=== PATIENT | female | born 1960 | race Caucasian/White ===

== ENCOUNTER → 2018-12-06 15:29 | Outpatient (CLI) | payer BC, SELFPAY ==
--- NOTE | 2018-12-06 15:35 | US_ITS ---
STUDY: RENAL ULTRASOUND - COMPLETE REASON FOR EXAM: Female, 58 years old. UTIs and back pain TECHNIQUE: Ultrasound evaluation of the kidneys was performed with real-time and static quan-scale imaging. COMPARISON: None. FINDINGS: The study is limited secondary to excessive bowel gas. RIGHT KIDNEY: Normal location of the right kidney, which is normal in size. The right kidney measures 11.8 x 4.8 x 3.9 cm. There is a normal cortex of the right kidney. The renal cortex measures 1.5 cm. There is no right renal mass or cyst. There are no right renal calculi. There is no right hydronephrosis. DISTAL RIGHT URETER: There is non-visualization of the distal right ureter. There is no demonstrated right ureterovesical junction calculus. There is no demonstrated right ureteral jet. LEFT KIDNEY: Normal location of the left kidney, which is normal in size. The left kidney measures 10.6 x 4.6 x 5.5 cm. There is a normal cortex of the left kidney. The renal cortex measures 1.4 cm. There is no left renal mass or cyst. There are no left renal calculi. There is no left hydronephrosis. DISTAL LEFT URETER: There is non-visualization of the distal left ureter. There is no demonstrated left ureterovesical junction calculus. There is no demonstrated left ureteral jet. BLADDER: The distended urinary bladder has a volume of 42 ml. There is a normal wall thickness of the distended urinary bladder. Bladder wall thickness is 2 mm. There is no demonstrated mass within the urinary bladder. There are no demonstrated bladder calculi. US/Kidney and Bladder IMPRESSION: Normal ultrasound of the kidneys and urinary bladder. Electronically Signed: Daniel Hadley MD at 16:46 EDT , Service support ,
== END ==
PROVIDERS: Family Provider Internal Medicine; PCP Internal Medicine; Referring Provider Urology; Visit Provider Urology
DX: N39.0 Urinary tract infection, site not specified (principal)
CPT/HCPCS: 76770

== ENCOUNTER → 2020-03-23 08:43 | Outpatient (CLI) ==
[2020-03-26 20:08] LABS: Almond <0.10 kU/L (Class 0); Barley, Whole Grain <0.10 kU/L (Class 0); Beef <0.10 kU/L (Class 0); Carrot <0.10 kU/L (Class 0); Casein <0.10 kU/L (Class 0); Cashew <0.10 kU/L (Class 0); Chicken <0.10 kU/L (Class 0); Chocolate <0.10 kU/L (Class 0); Clam <0.10 kU/L (Class 0); Codfish <0.10 kU/L (Class 0); Corn <0.10 kU/L (Class 0); Crab <0.10 kU/L (Class 0); Egg, White <0.10 kU/L (Class 0); Egg, Whole <0.10 kU/L (Class 0); Egg, Yolk <0.10 kU/L (Class 0); Garlic <0.10 kU/L (Class 0); Gluten <0.10 kU/L (Class 0); Hazelnut/Filbert <0.10 kU/L (Class 0); Lobster <0.10 kU/L (Class 0); Milk (Cow) <0.10 kU/L (Class 0); Oat <0.10 kU/L (Class 0); Onion <0.10 kU/L (Class 0); Orange <0.10 kU/L (Class 0); Pea <0.10 kU/L (Class 0); Pecan <0.10 kU/L (Class 0); Pork <0.10 kU/L (Class 0); Potato, White <0.10 kU/L (Class 0); Rice <0.10 kU/L (Class 0); Rye <0.10 kU/L (Class 0); Salmon <0.10 kU/L (Class 0); Shrimp <0.10 kU/L (Class 0); Soybean <0.10 kU/L (Class 0); Strawberry <0.10 kU/L (Class 0); Tomato <0.10 kU/L (Class 0); Tuna <0.10 kU/L (Class 0); Walnut, (Food) <0.10 kU/L (Class 0); Wheat <0.10 kU/L (Class 0); Yeast <0.10 kU/L (Class 0)
[2020-03-26 20:24] LABS: Apple <0.10 kU/L (Class 0); Peanut <0.10 kU/L (Class 0)
[2020-03-28 04:07] LABS: Banana <0.10 kU/L (Class 0); Celery <0.10 kU/L (Class 0); Cheddar Cheese <0.10 kU/L (Class 0); Lettuce <0.10 kU/L (Class 0); Peach <0.10 kU/L (Class 0)
[2020-03-28 09:01] LABS: Lactalbumin, Alpha <0.10 kU/L (Class 0); Turkey <0.10 kU/L (Class 0)
== END ==
PROVIDERS: Otolaryngology Otolaryngology/Facial Plastic Surgery
DX: T78.40XA Allergy, unspecified, initial encounter (principal)
CPT/HCPCS: 36415; 86003

== ENCOUNTER 2022-05-26 08:12 | Inpatient (IN) | payer OTHER, SELFPAY ==
[2022-05-26] VITALS (10 sets, daily range): BP systolic 114–155; BP diastolic 54–85; PULSE 78–113; RESP 15–20; TEMP 36.3–37.7; O2SAT 93–99; BMI 44.9; BMI 47.5
--- NOTE | 2022-05-26 08:36 | EKG12_ITS ---
Test Reason : SOB Blood Pressure : / mmHG Vent. Rate : 106 BPM Atrial Rate : 106 BPM P-R Int : 112 ms QRS Dur : 076 ms QT Int : 498 ms P-R-T Axes : 043 056 057 degrees QTc Int : 661 ms Sinus tachycardia Nonspecific ST and T wave abnormality Prolonged QT Abnormal ECG Confirmed by SHEMAR PANDYA, JOSETTE ([id number]), non linear editor EVETTE CONROY ([id number]) on 05/27/2022 10:48:23 AM Referred By: Confirmed By:JOSETTE STATON MD
--- NOTE | 2022-05-26 08:37 | ED.VIS.DYS ---
HPI History of Present Illness Chief Complaint: Shortness of Breath Narrative Narrative: Patient presents with shortness of breath cough and congestion for past 2 days. Family members have been diagnosed with influenza. She has some myalgias. She has no chest pain or pleuritic component. She has no nausea or vomiting. No diarrhea. No abdominal pain or urinary symptoms. She has had a low-grade fever. [facility] Medical History (Updated 05/26/22 @ 11:[address] Huang Castro MD) Acid reflux disease Allergy Home Medications cetirizine 10 mg capsule (Zyrtec) 10 mg PO DAILY 05/26/22 [History Last Taken Unknown] omeprazole 20 mg capsule,delayed release 20 mg PO DAILY 05/26/22 [History Last Taken Unknown] Allergy/AdvReac Type Severity Reaction Status Date / Time Penicillins Allergy Hives Verified 05/26/22 08:16 Sulfa (Sulfonamide Allergy Hives Verified 05/26/22 08:16 Antibiotics) Social History Smoking Status: Current every day smoker tobacco type: cigarettes ROS ROS ED ROS Narrative Past medical history: Reviewed Medications: Reviewed Social history: Noncontributory Review of systems: All systems negative except as indicated General: No fever Eyes: No visual changes ENT: Some upper airway congestion. Neck: No neck pain Cardiovascular: No chest pain Respiratory: Nonproductive cough and some dyspnea Gastrointestinal: No abdominal pain, nausea vomiting or diarrhea Genitourinary: No dysuria Musculoskeletal: Some myalgias Skin: No rash Neurological: No memory loss, confusion or any focal weakness Psych: No recent behavioral changes Hematologic: No easy bleeding or easy bruising EXAM Physical Exam Narrative Exam Narrative: Physical exam General: As she is sitting she appears relatively comfortable. She does not appear ill Head: Normocephalic, Atraumatic Eyes: Conjunctiva not pale ENT: Moist mucous membranes, some congestion Neck: Supple, Nontender, No lymphadenopathy Cardiovascular: Regular rate, Regular rhythm Respiratory: No distress, CTA bilaterally. I do not appreciate any rhonchi or wheezing. She is speaking in full sentences. Abdomen: Soft, Nontender, Nondistended Back: Nontender, Normal Inspection. Negative for: CVA tenderness Extremities: Nontender, No edema Skin: Normal color, No rash Neurological: Alert, Normal Strength, Normal Sensation Psychological: Normal affect Const Vital Signs: 05/26/22 08:13 05/26/22 10:15 05/26/22 11:09 Temperature 98 F Temperature Source Temporal Pulse Rate 113 H Respiratory Rate 18 Respiratory Effort Normal Non-Labored Respiratory Depth Normal Respiratory Pattern Normal Blood Pressure 155/85 H Blood Pressure Mean 108 Pulse Ox 93 99 Oxygen Delivery Method Room Air Room Air Nasal Cannula Oxygen Flow Rate (L/min) 2 MDM MDM Lab Data Labs: Laboratory Results - last 24 hr 05/26/22 05/26/22 05/26/22 09:10 09:10 09:10 WBC 6.9 RBC 4.36 Hgb 12.9 Hct 41.7 MCV 95.6 MCH 29.6 MCHC 30.9 L RDW Std Deviation 48.2 H RDW Coeff of Diann 13.7 Plt Count 217 MPV 9.3 Immature Gran % (Auto) 0.900 Neut % (Auto) 87.7 H Lymph % (Auto) 3.5 L [place] % (Auto) 7.8 Eos % (Auto) 0.0 Baso % (Auto) 0.1 Absolute Neuts (auto) 6.1 Absolute Lymphs (auto) 0.24 L Nucleated RBC % 0.3 D-Dimer Quant (PE/DVT) Sodium 140 Potassium 4.5 Chloride 109 H Carbon Dioxide 27.0 Anion Gap 4 L BUN 14 Creatinine 0.74 Estim Creat Clear Calc 55.17 Est GFR (MDRD) Af Amer 101 Est GFR (MDRD) Non-Af 83 BUN/Creatinine Ratio 18.8 Glucose 114 H Calcium 8.7 Total Bilirubin 0.30 AST 32 ALT 28 Alkaline Phosphatase 89 Troponin I High Sens 9 B-Natriuretic Peptide 35.9 Total Protein 6.8 Albumin 3.3 Globulin 3.5 Albumin/Globulin Ratio 0.9 05/26/22 09:10 WBC RBC Hgb Hct MCV MCH MCHC RDW Std Deviation RDW Coeff of Diann Plt Count MPV Immature Gran % (Auto) Neut % (Auto) Lymph % (Auto) [place] % (Auto) Eos % (Auto) Baso % (Auto) Absolute Neuts (auto) Absolute Lymphs (auto) Nucleated RBC % D-Dimer Quant (PE/DVT) 1.08 H* Sodium Potassium Chloride Carbon Dioxide Anion Gap BUN Creatinine Estim Creat Clear Calc Est GFR (MDRD) Af Amer Est GFR (MDRD) Non-Af BUN/Creatinine Ratio Glucose Calcium Total Bilirubin AST ALT Alkaline Phosphatase Troponin I High Sens B-Natriuretic Peptide Total Protein Albumin Globulin Albumin/Globulin Ratio Radiography Diagnostic Testing: Clinical Impression(s) from Imaging Studies Chest X-Ray 05/26/22 09:20 IMPRESSION: No acute abnormality is seen. Electronically Signed: Johnathan Malone MD at 10:03 EST , Chest CTA 05/26/22 09:36 IMPRESSION: Normal CTA chest examination, without a demonstrated pulmonary embolism or arterial dissection. Electronically Signed: Johnathan Malone MD at 11:00 EST , Chest x-ray read by me as normal EKG Initial EKG: Comments: Sinus rhythm with a rate of 106. Normal ND. QTC is 661. Nonspecific ST changes throughout the EKG. Treatment and Re-Evaluation Narrative: Patient has dyspnea, she was found to be hypoxic at 88% here as well as in the outpatient [facility]. She tested negative for COVID and influenza I do believe this is likely a false negative and she likely has influenza based on her symptoms and the fact that it is peak season. I will check a respiratory panel on her in the meantime she is now oxygen dependent therefore I will admit her. A PE study was negative for thromboembolic event and pneumonia therefore I do not think she needs antibiotics. She is not wheezing therefore I do not believe she will benefit from nebulizers. Discharge Plan Triage Chief Complaint: Shortness of Breath ED Provider: Huang Castro Dx/Rx/DC Orders Clinical Impression: Hypoxia, Upper respiratory infection, Weakness, Acute dyspnea Prescriptions: No Action omeprazole 20 mg Capsule,Delayed Release(Dr/Ec) 20 mg PO DAILY Zyrtec 10 mg Capsule 10 mg PO DAILY Primary Care Provider: Meenakshi Tan Referrals: Meenakshi Tan MD [Primary Care Provider] - Disposition Disposition: Acute Care Hospital [facility]
[2022-05-26 09:19] LABS: Absolute Lymphocyte Count 0.24 X10^3/uL (0.83-4.51); Absolute Neutrophil Count 6.1 X10^3/uL (2.0-7.7); Basophil# 0.01 X10^3/uL; Basophil% 0.1 % (0-1); Hematocrit 41.7 % (37-47); Hemoglobin 12.9 g/dL (12.0-15.0); Lymphocyte # 0.24 X10^3/ul (0.83-4.51); Lymphocyte % 3.5 % (19-41); Mean Corp Hgb Conc 30.9 g/dL (32-36); Mean Corpuscular Hgb 29.6 pg (27.0-32.0); Mean Corpuscular Volume 95.6 fL (81-99); Mean Platelet Vol. 9.3 fl (6.2-12.0); Monocyte# 0.54 X10^3/uL; Monocyte% 7.8 % (0-10); NRBC Flagged by Analyzer 0.3 % (0-5); Neutrophil # 6.07 X10^3/uL (2.7-7.7); Neutrophil % 87.7 % (47-70); POSITIVE DIFFERENTIAL YES; Platelet Count 217 K/mm3 (150-450); RBC Distribution Width CV 13.7 % (11.6-14.6); RBC Distribution Width SD 48.2 fl (35.1-43.9); Red Blood Count 4.36 M/mm3 (4.2-5.4); White Blood Count 6.9 K/mm3 (4.4-11.0)
--- NOTE | 2022-05-26 09:20 | RAD_ITS ---
STUDY: X-RAY CHEST REASON FOR EXAM: Female, 62 years old. Sob TECHNIQUE: PA and lateral views of the chest. COMPARISON: Comparison is made with prior study dated 02/26/2013. FINDINGS: Mild elevation of the left hemidiaphragm. Scattered calcified granulomas. The lungs are clear. There is no demonstrated pleural abnormality. Normal size heart. Normal mediastinum and [place]. Normal visualized pulmonary arteries. Normal visualized aortic arch and descending thoracic aorta. Normal visualized thoracic spine. Normal visualized ribs, clavicles, and shoulders. There is no demonstrated abnormality of the visualized soft tissue structures of the upper abdomen. RAD/Chest PA and Lateral IMPRESSION: No acute abnormality is seen. Electronically Signed: Johnathan Malone MD at 10:03 [facility] ,
[2022-05-26 09:23] LABS: Differential Indicated SCAN CRITERIA MET
[2022-05-26 09:35] LABS: D-Dimer Quantitative (DVT/PE) 1.08 FEU/ug/m (0.27-0.49)
--- NOTE | 2022-05-26 09:36 | CT_ITS ---
STUDY: CTA CHEST REASON FOR EXAM: Female, 62 years old. Shortness of breath. RADIATION DOSAGE (If Supplied By Facility): CTDIvol = ( 17.32 ) mGy, DLP = ( 669.07 ) mGycm TECHNIQUE: The examination was performed with the intravenous administration of IV 100mL Isovue-370. Post-processing of the angiographic images was performed, with multiplanar reformation and 3D reconstruction. Individualized dose optimization techniques were used for this CT. COMPARISON: None. FINDINGS: Normal enhancement of the main pulmonary artery and right and left pulmonary arteries. Normal enhancement of the bilateral peripheral pulmonary arteries. There is no demonstrated pulmonary embolism. Normal thoracic aorta and visualized great vessels. There is no demonstrated aortic dissection. Normal heart and pericardium. Calcified subcarinal lymph nodes. Calcified right hilar lymph nodes. Normal visualized trachea and bronchi. The lungs are well expanded. Normal pulmonary parenchyma. Normal pleura. Normal chest wall structures. Normal osseous structures. Small hiatal hernia. CT/CTA Chest W/WO Contrast IMPRESSION: Normal CTA chest examination, without a demonstrated pulmonary embolism or arterial dissection. Electronically Signed: Johnathan Malone MD at 11:00 EST ,
[2022-05-26 09:38] LABS: BNP,B-Type NATRIURETIC PEPTIDE 35.9 pg/mL (0-100)
[2022-05-26 09:41] LABS: ALB/GLOB Ratio 0.9 RATIO (0.9-2.4); AST(SGOT) 32 U/L (15-37); Alanine Aminotransfer ALT/SGPT 28 U/L (13-56); Albumin, Serum 3.3 g/dL (3.2-5.0); Alkaline Phosphatase 89 U/L (45-117); Anion Gap 4 (5-15); BUN 14 mg/dL (7-18); BUN/Creat Ratio 18.8 RATIO (10-20); Calcium,Total 8.7 mg/dL (8.5-10.1); Chloride 109 mmol/L (98-107); Creatinine, Serum 0.74 mg/dL (0.55-1.02); EST Glomerular Filtration Rate 83 mL/min (>60); Est Glom Filt Rate - Afr Amer 101 mL/min (>60); Estimated Creatinine Clearance 55.17 ml/min; Globulin 3.5 g/dL (2.2-4.2); Glucose 114 mg/dL (74-106); Potassium 4.5 mmol/L (3.5-5.1); Protein, Total 6.8 g/dL (6.4-8.2); Sodium Level 140 mmol/L (136-145); Troponin-I HS 9 pg/mL (3.0-54.0)
--- NOTE | 2022-05-26 11:51 | NURSING ---
DR BAIRON DONG
--- NOTE | 2022-05-26 11:58 | PCM.HP.STD ---
HPI - General General Date of Admission: 05/26/22 Date of Service: 05/26/22 Chief Complaint: Shortness of breath/hypoxia HPI Narrative SAVI GIBSON, is a 62 F who presented to the emergency department [facility] on 05/26/2022 with a chief complaint of cough and shortness of breath. Patient states it started approximately 24 hours prior to presentation. She has had associated headache, neck pain, nasal congestion, cough that is only intermittently productive of sputum but typically dry, generalized weakness and myalgias. She is had no nausea vomiting or diarrhea. She reports intermittent chills but no documented fever. She has no sick contacts. She states her T-max at home was 99.7. She went to outpatient urgent care and oxygen saturations were 87% on room air so they referred her to the emergency department. Per discussion with the ER physician her oxygen was 87 to 88% on room air there however it is documented to be 93%. Temperature was 98, heart rate 113, respiratory rate 18, blood pressure 155/85 and all pulse ox was 93% on room air and improved to 99% on 2 L. Her CBC is overall unremarkable however it does show a left shift with an 87.7% neutrophilia. Her chemistry panel is unremarkable. A D-dimer was obtained given her shortness of breath and was found to be 1.08 therefore a CTA of her chest was performed and showed a normal CTA without any pulmonary embolus or arterial dissection and there were no abnormalities in the lung parenchyma upon my review. On exam she does have intermittent rhonchi that clear with coughing and scattered end expiratory wheezes. A COVID-19 and flu panel are negative, respiratory viral panel were negative as well. [facility] Medical History Acid reflux disease Allergy Arthritis Kidney stones Home Medications Lactobacillus acidophilus 10 billion cell capsule (Probiotic) 10,000 mmu cells PO DAILY GUT HEALTH 05/26/22 [History Last Taken 05/25/22] acetaminophen 500 mg tablet 1,000 mg PO QHS PAIN 05/26/22 [History Last Taken 05/25/22] cetirizine 10 mg capsule (Zyrtec) 10 mg PO DAILY ALLERGIES 05/26/22 [History Last Taken 05/26/22] cholecalciferol (vitamin D3) 125 mcg (5,000 unit) capsule 125 mcg PO DAILY SUPPLEMENT 05/26/22 [History Last Taken 05/26/22] guaifenesin 600 mg tablet, extended release 12 hr (Mucinex) 600 mg PO DAILY CONGESTION 05/26/22 [History Last Taken 05/25/22] ibuprofen 200 mg tablet 800 mg PO QHS PAIN 05/26/22 [History Last Taken 05/25/22] loperamide 2 mg capsule 4 mg PO DAILY DIARRHEA 05/26/22 [History Last Taken 05/26/22] magnesium citrate 100 mg tablet 100 mg PO DAILY SUPPLEMENT 05/26/22 [History Last Taken 05/25/22] omeprazole 20 mg capsule,delayed release 20 mg PO DAILY GERD 05/26/22 [History Last Taken 05/26/22] vitamin A-vitamin C-vit E-min tablet 1 tab PO DAILY SUPPLEMENT 05/26/22 [History Last Taken 05/25/22] Allergy/AdvReac Type Severity Reaction Status Date / Time Penicillins Allergy Hives Verified 05/26/22 08:16 Sulfa (Sulfonamide Allergy Hives Verified 05/26/22 08:16 Antibiotics) no significant family history no surgical history Social History (Updated 05/26/22 @ 17:[address] Leila Miller, DO) Smoking Status: Current every day smoker tobacco type: cigarettes alcohol intake: current alcohol intake frequency: holidays/special occasions only substance use type: does not use ROS Constitutional Constitutional: Reports chills, malaise and weakness; Denies anorexia, change in weight, fatigue, fever(s), night sweats or other Eyes Eyes: Denies blurry vision, change in eye color, change in vision, discharge from eye(s), double vision, erythema, eye pain, loss of vision or other ENT HEENT: Reports headache(s) and nasal congestion; Denies abnormal hearing, dysphagia, ear pain, epistaxis, hearing loss, nasal discharge, post nasal drip, sinus pressure, sore throat or other Cardiovascular Cardiovascular: Reports dyspnea on exertion; Denies chest pain, claudication, edema, lightheadedness, orthopnea, palpitations, paroxysmal nocturnal dyspnea, rapid heart rate, syncope or other Respiratory/Chest Respiratory/Chest: Reports cough, dyspnea, shortness of breath at rest, shortness of breath with exertion and wheezing; Denies excessive phlegm production, hemoptysis, productive cough or other Gastrointestinal Gastrointestinal: Denies abdominal pain, coffee ground emesis, constipation, diarrhea, dyspepsia, hematemesis, hematochezia, loose stools, melena, nausea, vomiting or other Genitourinary Genitourinary: Denies burning urination, difficulty urinating, dysuria, hematuria, nocturia, urinary frequency, urinary hesitancy, urinary incontinence, urinary urgency or other Musculoskeletal Musculoskeletal: Reports neck pain; Denies arthralgias, back pain, joint pain, joint stiffness, joint swelling, myalgias or other Neurologic Neurologic: Denies abnormal gait, abnormal speech, confusion, disequilibrium, dizziness, focal weakness, headache(s), numbness, paresthesias, seizure-like activity, seizures, syncope, tingling, tremor(s) or other Psychiatric Psychiatric: Denies anxiety, depression, homicidal ideation, suicidal ideation or other Endocrine Endocrinology: Denies change in body appearance, cold intolerance, excessive sweating, heat intolerance, polydipsia, polyuria or other Hematologic/Lymphatic Hematologic/Lymphatic: Denies anemia, easy bleeding, easy bruising, lymphadenopathy or other Allergic/Immunologic Allergic/Immunologic: Denies rhinitis, hives, eczemia, asthma or other Vital Signs Vital Signs Vital Signs: 05/26/22 08:13 05/26/22 10:15 05/26/22 11:09 Temperature 98 F Temperature Source Temporal Pulse Rate 113 H Respiratory Rate 18 Respiratory Effort Normal Non-Labored Respiratory Depth Normal Respiratory Pattern Normal Blood Pressure 155/85 H Blood Pressure Mean 108 Pulse Ox 93 99 Oxygen Delivery Method Room Air Room Air Nasal Cannula Oxygen Flow Rate (L/min) 2 Weight Weight: 104.326 kg Body Mass Index (BMI) 44.9 Physical Exam Const alert, oriented x3, no apparent distress, healthy appearing and well nourished Constitutional Narrative: Morbidly obese white female lying in bed on cell phone texting, appears comfortable nontoxic, nursing at bedside General Appearance: cooperative HEENT normocephalic, head/scalp atraumatic, hearing grossly normal bilaterally and moist oral mucous membranes HEENT Narrative: Mallampati 4, dentition is good, no thrush Neck no lymphadenopathy and supple Neck Narrative: Trachea midline, neck is short and thick Resp normal respiratory effort, no retractions, no use of accessory muscles and No clear to auscultation bilaterally Resp Narrative: Scattered end expiratory wheezes with few scattered rhonchi that clear with cough Auscultation: rhonchi and wheezes; Negative for crackles Cardio regular rate, regular rhythm, S1 normal heart sound, S2 normal heart sound, no murmurs, no rub, no gallops and no clicks GI normal to inspection, nondistended, normoactive bowel sounds, soft to palpation and non-tender Extremity no clubbing, cyanosis or edema Extremity Narrative: Plus pedal pulses Neuro oriented x3, CN's II-XII intact bilaterally, moves all extremities and no focal motor deficits Speech: speech normal Psych affect normal Psych Narrative: Pleasant and appropriately interactive Results Lab / Micro Data Attestation: I reviewed the patient's lab results. Result Diagrams: 05/26/22 09:10 05/26/22 09:10 Labs: Laboratory Results - last 24 hr 05/26/22 09:10: WBC 6.9, RBC 4.36, Hgb 12.9, Hct 41.7, MCV 95.6, MCH 29.6, MCHC 30.9 L, RDW Std Deviation 48.2 H, RDW Coeff of Diann 13.7, Plt Count 217, MPV 9.3, Immature Gran % (Auto) 0.900, Neut % (Auto) 87.7 H, Lymph % (Auto) 3.5 L, [place] % (Auto) 7.8, Eos % (Auto) 0.0, Baso % (Auto) 0.1, Absolute Neuts (auto) 6.1, Absolute Lymphs (auto) 0.24 L, Nucleated RBC % 0.3 05/26/22 09:10: Sodium 140, Potassium 4.5, Chloride 109 H, Carbon Dioxide 27.0, Anion Gap 4 L, BUN 14, Creatinine 0.74, Estim Creat Clear Calc 55.17, Est GFR (MDRD) Af Amer 101, Est GFR (MDRD) Non-Af 83, BUN/Creatinine Ratio 18.8, Glucose 114 H, Calcium 8.7, Total Bilirubin 0.30, AST 32, ALT 28, Alkaline Phosphatase 89, Troponin I High Sens 9, Total Protein 6.8, Albumin 3.3, Globulin 3.5, Albumin/Globulin Ratio 0.9 05/26/22 09:10: B-Natriuretic Peptide 35.9 05/26/22 09:10: D-Dimer Quant (PE/DVT) 1.08 H* Micro: Microbiology 05/26/22 09:10 Nasal Secretion SARS-CoV-2 & FLU Antigen (Rapid) - Final Radiology Impression Chest X-Ray 05/26/22 09:20 IMPRESSION: No acute abnormality is seen. Electronically Signed: Johnathan Malone MD at 10:03 EST , Chest CTA 05/26/22 09:36 IMPRESSION: Normal CTA chest examination, without a demonstrated pulmonary embolism or arterial dissection. Electronically Signed: Johnathan Malone MD at 11:00 EST , Assessment & Plan Assessment/Plan (1) Hypoxia: (2) Upper respiratory infection: (3) Weakness: (4) Acute dyspnea: PLAN: Plan Hypoxia with upper respiratory tract infection -COVID and flu are negative -Respiratory viral panel is negative -Check strep pneumo and Legionella antigens -Patient is not having any significant sputum production -Antitussives -Mucolytics -Steroids 40 mg prednisone daily -Aggressive pulmonary toilet -I-S/Pep therapy -Currently on 2 L nasal cannula not O2 dependent at baseline -Wean oxygen as able -Need ambulatory pulse ox prior to discharge Weakness -Secondary to the above -Encourage mobility Elevated D-dimer -CTA is negative for PE -No lower extremity edema -Likely related to acute infection GERD Continue home PT PI seasonal allergies -Continue home Zyrtec Chronic diarrhea -Continue home Imodium Vitamin D deficiency -Continue home vitamin D supplementation Morbid obesity -BMI 47.6 -Recommend weight loss -Complicates treatment, prognosis, outcomes -Would recommend outpatient polysomnography after discharge as patient is high risk for obstructive sleep apnea Tobacco abuse -Patient reports she smokes anywhere from 1/2 to 1 pack of cigarettes daily -Has been doing so forever -Denies need for nicotine replacement therapy -Recommend cessation DVT prophylaxis -Lovenox twice daily CODE STATUS -Full code Charges/Coding Visit Charges Inpatient E&M: 08072 Init Hosp L2
--- NOTE | 2022-05-26 12:57 | NURSING ---
MED SURG BAIRON HYPOXIA
--- NOTE | 2022-05-26 14:08 | NURSING ---
MS ED 3
[2022-05-26] MEDS: predniSONE 20 MG Tablet 40 MG PO (16:24)
[2022-05-26] MEDS: Ipratropium/Albuterol Sulfate 3 ML AMPUL.NEB INHALATION (16:52)
--- NOTE | 2022-05-26 17:15 | NURSING ---
report called to [facility]by with no questions. pt to [facility] via bed with all belongings.
[2022-05-26] MEDS: Benzonatate 100 MG Capsule PO (18:10)
[2022-05-26] MEDS: Ibuprofen 400 MG Tablet 800 MG PO (20:22)
[2022-05-26] MEDS: Enoxaparin 40 MG/0.4 ML Syringe SC (20:22)
[2022-05-26] MEDS: guaiFENesin 600 MG Tablet PO (20:23)
[2022-05-26] MEDS: Acetaminophen 500 MG Tablet 1000 MG PO (20:23)
[2022-05-27] VITALS (10 sets, daily range): BP systolic 106–125; BP diastolic 54–65; PULSE 84–94; RESP 15–20; TEMP 36.4–37.1; O2SAT 85–97
[2022-05-27] MEDS: Albuterol 2.5 MG/3 ML VIAL.NEB. INHALATION (00:24)
[2022-05-27 05:22] LABS: Absolute Neutrophil Count 4.9 X10^3/uL (2.0-7.7); Basophil# 0.01 X10^3/uL; Basophil% 0.2 % (0-1); Hematocrit 40.8 % (37-47); Hemoglobin 12.3 g/dL (12.0-15.0); Mean Corp Hgb Conc 30.1 g/dL (32-36); Mean Corpuscular Hgb 29.4 pg (27.0-32.0); Mean Corpuscular Volume 97.4 fL (81-99); Mean Platelet Vol. 9.6 fl (6.2-12.0); Monocyte% 8.3 % (0-10); NRBC Flagged by Analyzer 0.5 % (0-5); Neutrophil # 4.86 X10^3/uL (2.7-7.7); Neutrophil % 81.2 % (47-70); POSITIVE DIFFERENTIAL YES; Platelet Count 196 K/mm3 (150-450); RBC Distribution Width SD 50.4 fl (35.1-43.9); Red Blood Count 4.19 M/mm3 (4.2-5.4)
[2022-05-27 05:26] LABS: Differential Indicated SCAN CRITERIA MET
[2022-05-27] MEDS: Ibuprofen 400 MG Tablet PO (05:48)
[2022-05-27 05:57] LABS: Anion Gap 4 (5-15); BUN 13 mg/dL (7-18); BUN/Creat Ratio 21.7 RATIO (10-20); Calcium,Total 8.4 mg/dL (8.5-10.1); Chloride 106 mmol/L (98-107); EST Glomerular Filtration Rate 107 mL/min (>60); Est Glom Filt Rate - Afr Amer 130 mL/min (>60); Estimated Creatinine Clearance 68.04 ml/min; Glucose 99 mg/dL (74-106); Magnesium 2.2 mg/dL (1.6-2.6); Potassium 3.7 mmol/L (3.5-5.1); Sodium Level 139 mmol/L (136-145)
[2022-05-27 06:06] LABS: Phosphorus 3.8 mg/dL (2.5-4.9)
[2022-05-27 06:13] LABS: Differential Comment SCANNED
[2022-05-27] MEDS: Ipratropium/Albuterol Sulfate 3 ML AMPUL.NEB INHALATION ×2 (07:02→12:58)
--- NOTE | 2022-05-27 07:40 | NURSING ---
Patient in COVID isolation room. Test yesterday came back yesterday as negative for both COVID and FLU A/B. Messaged Dr. Dixon to verify if patient can come out of precautions. Dr. Dixon replied sure.
[2022-05-27] MEDS: Loratadine 10 MG Tablet PO (08:58)
[2022-05-27] MEDS: predniSONE 20 MG Tablet 40 MG PO (08:58)
[2022-05-27] MEDS: Enoxaparin 40 MG/0.4 ML Syringe SC (08:59)
[2022-05-27] MEDS: guaiFENesin 600 MG Tablet PO (08:59)
[2022-05-27] MEDS: Magnesium Chloride 64 MG Delay Rel.Tablet 128 MG PO (08:59)
[2022-05-27] MEDS: Cholecalciferol (Vit D3) 125 MCG CAPSULE (5,000 UNITS) PO (09:00)
[2022-05-27] MEDS: Loperamide 2 MG Capsule 4 MG PO (09:01)
[2022-05-27] MEDS: Multivitamin (Healthy Eyes) Capsule 1 CAP PO (09:01)
[2022-05-27] MEDS: Pantoprazole Sodium 20 MG Tablet PO (09:01)
--- NOTE | 2022-05-27 10:45 | CASEMGMT ---
RN RAMOS Face to Face with patient for initial transition planning/care coordination assessment. RN CM introduced self and role at [facility] [place]. Patient lying in bed, alert and oriented, daughter at bedside. Patient willing to participate in assessment and is able to answer all questions appropriately. Care providers, pharmacy, and demographics verified. Patient wishes to discharge home, denies need for home health at this time. Patient states she has no further needs or concerns at this time. CM to follow for discharge planning needs that may arise. PCP: Britney Specialists: none Preferred Pharmacy: [facility] at discharge Insurance: [employer] Prescription Benefit: yes Living Will/HPOA: yes, daughter Jessica Deal LNOK: daughter Living Arrangements: Patient lives with daughter in a 2 story home with finished basement where patient stays. Patient states she is independent at home and able to ambulate stairs. Transportation: self, daughter DME/HHC: Patient states she has shower chair, raised toilet, cane, walker, and grab bars at home. Patient is currently on oxygen, will monitor for home oxgyen. Reviewed DME agencies with patient and prefers [employer]. Disposition Plan: Patient to discharge home with family support and follow-up plans in place. Kinga WYMAN, RN, CM
--- NOTE | 2022-05-27 12:34 | DCINST_ITS ---
Discharge Instructions Diet Discharge Diet: No restrictions Activity Discharge Activity: Return to Normal Activity Dressing / Incision Call your doctor if you observe: Fever of 101 or Higher, Shortness of breath, Dizziness, Fainting spells, Swelling in the ankles, Chest pain and Increased palpitations (irregular heartbeat) Follow Up Care Test Results: Test results from this visit will be discussed in further detail at your follow- up appointment, if applicable. Discharge Plan Admission Admit Date/Time: 05/26/22 11:54 Attending Provider: Mark Dixon Primary Care Provider: Meenakshi Tan Consulting Providers: Leila Miller Discharge Orders/Prescriptions Prescriptions: New prednisone 20 mg Tablet 40 mg PO BREAKFAST 7 Days Qty: 14 0RF albuterol sulfate 90 mcg/actuation HFA aerosol inhaler 2 puff inhalation Q6H PRN (Reason: shortness of breath or wheezing) Qty: 6.7 0RF Continued omeprazole 20 mg Capsule,Delayed Release(Dr/Ec) 20 mg PO DAILY Zyrtec 10 mg Capsule 10 mg PO DAILY loperamide 2 mg Capsule 4 mg PO DAILY acetaminophen 500 mg Tablet 1,000 mg PO QHS ibuprofen 200 mg Tablet 800 mg PO QHS cholecalciferol (vitamin D3) 125 mcg (5,000 unit) Capsule 125 mcg PO DAILY vitamin A-vitamin C-vit E-min Tablet 1 tab PO DAILY magnesium citrate 100 mg Tablet 100 mg PO DAILY Probiotic 10 billion cell Capsule 10,000 mmu cells PO DAILY guaifenesin [Mucinex] 600 mg Tablet Extended Release 12hr 600 mg PO DAILY Referrals / Follow Up: Meenakshi Tan MD [Primary Care Provider] - Within 1 Week Disposition Disposition (needs filled in before D/C Order can be placed): Home, Self Care
--- NOTE | 2022-05-27 14:08 | CASEMGMT ---
RN RAMOS updated that patient will need home oxygen at discharge. ORLANDO BEASLEY received script for home [place] and [place] [facility] [facility] and [place] Alisa at [facility] [place].
--- NOTE | 2022-05-27 17:46 | DS.PCM_ITS ---
Providers Date of Admission: 05/26/22 Primary Care Physician: Dr. Meenakshi Tan MD Reason For Visit: ACUTE HYPOXIA Diagnosis Discharge Diagnosis (1) Hypoxia: Status: Acute Code(s): R09.02 - Hypoxemia (2) Upper respiratory infection: Status: Acute Code(s): J06.9 - Acute upper respiratory infection, unspecified (3) Weakness: Status: Acute Code(s): R53.1 - Weakness (4) Acute dyspnea: Status: Acute Code(s): R06.00 - Dyspnea, unspecified Medications at Discharge Home Medications Lactobacillus acidophilus 10 billion cell capsule (Probiotic) 10,000 mmu cells PO DAILY GUT HEALTH 05/26/22 acetaminophen 500 mg tablet 1,000 mg PO QHS PAIN 05/26/22 cetirizine 10 mg capsule (Zyrtec) 10 mg PO DAILY ALLERGIES 05/26/22 cholecalciferol (vitamin D3) 125 mcg (5,000 unit) capsule 125 mcg PO DAILY SUPPLEMENT 05/26/22 guaifenesin 600 mg tablet, extended release 12 hr (Mucinex) 600 mg PO DAILY CONGESTION 05/26/22 ibuprofen 200 mg tablet 800 mg PO QHS PAIN 05/26/22 loperamide 2 mg capsule 4 mg PO DAILY DIARRHEA 05/26/22 magnesium citrate 100 mg tablet 100 mg PO DAILY SUPPLEMENT 05/26/22 omeprazole 20 mg capsule,delayed release 20 mg PO DAILY GERD 05/26/22 vitamin A-vitamin C-vit E-min tablet 1 tab PO DAILY SUPPLEMENT 05/26/22 albuterol sulfate 90 mcg/actuation aerosol inhaler 2 puff inhalation Q6H PRN shortness of breath or wheezing #6.7 grams 05/27/22 prednisone 20 mg tablet 40 mg PO BREAKFAST 7 days #14 tabs 05/27/22 Hospital Course Operations None Procedures None Summary of Care Provided Minutes Spent on Discharge: 43 Hospital Course: Per HPI: SAVI GIBSON, is a 62 F who presented to the emergency department [facility] on 05/26/2022 with a chief complaint of cough and shortness of breath.? Patient states it started approximately 24 hours prior to presentation.? She has had associated headache, neck pain, nasal congestion, cough that is only intermittently productive of sputum but typically dry, generalized weakness and myalgias.? She is had no nausea vomiting or diarrhea.? She reports intermittent chills but no documented fever.? She has no sick contacts.? She states her T-max at home was 99.7.? She went to outpatient urgent care and oxygen saturations were 87% on room air so they referred her to the emergency department. Per discussion with the ER physician her oxygen was 87 to 88% on room air there however it is documented to be 93%.? Temperature was 98, heart rate 113, respiratory rate 18, blood pressure 155/85 and all pulse ox was 93% on room air and improved to 99% on 2 L.? Her CBC is overall unremarkable however it does show a left shift with an 87.7% neutrophilia.? Her chemistry panel is unremarkable.? A D-dimer was obtained given her shortness of breath and was found to be 1.08 therefore a CTA of her chest was performed and showed a normal CTA without any pulmonary embolus or arterial dissection and there were no abnormalities in the lung parenchyma upon my review.? On exam she does have intermittent rhonchi that clear with coughing and scattered end expiratory wheezes.? A COVID-19 and flu panel are negative, respiratory viral panel were negative as well. Hospital Course: 1. Acute hypoxic respiratory failure secondary to influenza A?62-year-old female presented to the hospital with some breath, she initially had gone to an urgent care but was found to be 87% on room air so she was brought here into the hospital. On admission her COVID and her flu were negative as well as a respiratory panel. She was started on steroids as well as inhalers and feels much better today though she is still requiring 2 to 3 L with ambulation. She notified me this morning that she got a call from urgent care stating that their flu test did come back positive for influenza A which is consistent with her symptomatology. I discussed with her and her daughter the possibility for discharge today and they both expressed understanding of the risk benefits of going home and they wanted to go home today. I discussed with them that we could wait another day or 2 to see whether or not the oxygen improved with treatment, however they were okay with going home with oxygen which is the main reason why she was discharged early. Of note she did have an elevated D-dimer on admission which was evaluated with a CTA of the chest which was negative for PE. She was discharged home with a weeks worth of prednisone as well as an albuterol inhaler. 2. Tobacco abuse, morbid obesity, vitamin D deficiency, chronic diarrhea, GERD are all chronic medical conditions which complicate her care. Her home medications were continued where appropriate. Physical Exam Narrative General: Alert, Oriented x3, Cooperative, No apparent distress HEENT: Atraumatic, PERRLA, EOMI, Normocephalic Oral: Moist Mucosa Neck: Supple, No JVD Lungs: Diminished, Normal air movement, No rhonchi, No wheeze, No rales Cardiovascular: Regular rate, Regular Rhythm, Normal S1, Normal S2, No murmurs Abdomen: Soft, Non Tender, Non-Distended, No Hepato-splenomegaly Extremities: No edema, Capillary Refill Less than 3 Seconds Skin: No rashes, No breakdown Musculoskeletal: No Tenderness to Palpation of Joints or Extremities Neurological: Cranial nerves II-XII grossly intact, Motor Exam 5/5 strength throughout, Sensory exam intact to light touch and pain Psych/Mental Status: Normal Affect, Appropriate Weight / BMI Weight Weight: 243 lb 9.773 oz Body Mass Index (BMI) 47.5 ABG / Lab / Microbiology Data Result Diagrams: 05/27/22 04:30 05/27/22 04:30 Laboratory: Laboratory Results - last 24 hr 05/27/22 04:30: WBC 6.0, RBC 4.19 L, Hgb 12.3, Hct 40.8, MCV 97.4, MCH 29.4, MCHC 30.1 L, RDW Std Deviation 50.4 H, RDW Coeff of Diann 14.0, Plt Count 196, MPV 9.6, Immature Gran % (Auto) 0.300, Neut % (Auto) 81.2 H, Lymph % (Auto) 10.0 L, Luna % (Auto) 8.3, Eos % (Auto) 0.0, Baso % (Auto) 0.2, Absolute Neuts (auto) 4.9, Absolute Lymphs (auto) 0.60 L, Nucleated RBC % 0.5, Differential Comment SCANNED 05/27/22 04:30: Sodium 139, Potassium 3.7, Chloride 106, Carbon Dioxide 29.0, Anion Gap 4 L, BUN 13, Creatinine 0.60, Estim Creat Clear Calc 68.04, Est GFR (MDRD) Af Amer 130, Est GFR (MDRD) Non-Af 107, BUN/Creatinine Ratio 21.7 H, Glucose 99, Calcium 8.4 L, Magnesium 2.2 05/27/22 04:30: Phosphorus 3.8 Microbiology: Microbiology 05/26/22 11:40 Mucosa - Nasopharyngeal Respiratory Panel (PCR) - Final 05/26/22 09:10 Nasal Secretion SARS-CoV-2 & FLU Antigen (Rapid) - Final D/C Instructions Discharge Diet: No restrictions Call your doctor if you observe: Fever of 101 or Higher, Shortness of breath, Di zziness, Fainting spells, Swelling in the ankles, Chest pain and Increased palpitations (irregular heartbeat) Meaningful Use Info Meaningful Use Diagnoses (Choose all that apply): None applicable Discharge Plan Admission Admit Date/Time: 05/26/22 11:54 Attending Provider: Mark Dixon Primary Care Provider: Meenakshi Tan Consulting Providers: Leila Miller Discharge Orders/Prescriptions Prescriptions: New prednisone 20 mg Tablet 40 mg PO BREAKFAST 7 Days Qty: 14 0RF albuterol sulfate 90 mcg/actuation HFA aerosol inhaler 2 puff inhalation Q6H PRN (Reason: shortness of breath or wheezing) Qty: 6.7 0RF Continued omeprazole 20 mg Capsule,Delayed Release(Dr/Ec) 20 mg PO DAILY Zyrtec 10 mg Capsule 10 mg PO DAILY loperamide 2 mg Capsule 4 mg PO DAILY acetaminophen 500 mg Tablet 1,000 mg PO QHS ibuprofen 200 mg Tablet 800 mg PO QHS cholecalciferol (vitamin D3) 125 mcg (5,000 unit) Capsule 125 mcg PO DAILY vitamin A-vitamin C-vit E-min Tablet 1 tab PO DAILY magnesium citrate 100 mg Tablet 100 mg PO DAILY Probiotic 10 billion cell Capsule 10,000 mmu cells PO DAILY guaifenesin [Mucinex] 600 mg Tablet Extended Release 12hr 600 mg PO DAILY Referrals / Follow Up: Meenakshi Tan MD [Primary Care Provider] - Within 1 Week Disposition Disposition (needs filled in before D/C Order can be placed): Home, Self Care Charges/Coding Visit Charges Inpatient E&M: 23506 Disch Hosp
== END 2022-05-27 15:10 | disposition home or self-care (01) | DRG 193 ==
LOC: ED 11:19 → MS3 13:34 → PCU 16:58
PROVIDERS: Admitting Provider Internal Medicine; Emergency Provider Emergency Medicine; PCP Internal Medicine; Visit Provider Family Medicine
DX: J10.1 Influenza due to other identified influenza virus with other respiratory manifestations (principal); J96.01 Acute respiratory failure with hypoxia; Z68.42 Body mass index [BMI] 45.0-49.9, adult; E66.01 Morbid (severe) obesity due to excess calories; E55.9 Vitamin D deficiency, unspecified; K21.9 Gastro-esophageal reflux disease without esophagitis; F17.210 Nicotine dependence, cigarettes, uncomplicated; K52.9 Noninfective gastroenteritis and colitis, unspecified; Z79.899 Other long term (current) drug therapy; Z20.822 Contact with and (suspected) exposure to COVID-19
CPT/HCPCS: 36415; 71046; 71275; 80048; 80053; 83735; 83880; 84100; 84484; 85025; 85379; 87428; 87633; 93005; 94640; 94667; 94668; 99251; 99284; 99406; Q9967; A4216; G0463

== ENCOUNTER → 2022-10-29 | Outpatient (CLI) | payer OTHER, SELFPAY | END | disposition home or self-care (01) | LOC: SL 20:09 | PROVIDERS: PCP Internal Medicine; Referring Provider Internal Medicine; Visit Provider Internal Medicine | DX: G47.33 Obstructive sleep apnea (adult) (pediatric) (principal) | CPT/HCPCS: 95811 ==

== ENCOUNTER → 2022-11-24 | Outpatient (CLI) | payer OTHER, SELFPAY | END | disposition home or self-care (01) | LOC: SL 13:29 | PROVIDERS: PCP Internal Medicine; Referring Provider Internal Medicine; Visit Provider Internal Medicine | DX: Z46.89 Encounter for fitting and adjustment of other specified devices (principal) ==